=== PATIENT | male | born 1940 | race Caucasian/White ===

== ENCOUNTER 2024-09-20 08:22 | Inpatient (IN) ==
[2024-09-20 08:52] LABS: Basophils # (Auto) 0 K/mcL (0.00-0.30); Basophils % (Auto) 0 % (0.0-2.0); Eosinophils # (Auto) 0 K/mcL (0.00-0.70); Eosinophils % (Auto) 0 % (0.0-7.0); Hematocrit 26.8 % (40.1-51.0); Hemoglobin 9.1 g/dL (13.7-17.5); Lymphocytes # (Auto) 0.37 K/mcL (1.50-4.80); Lymphocytes % (Auto) 1.8 % (15.5-49.0); Mean Cell Volume 90.8 fL (80.0-100.0); Mean Platelet Volume 9.4 fL (8.8-12.5); Monocytes # (Auto) 0.93 K/mcL (0.10-0.90); Monocytes % (Auto) 4.4 % (1.0-12.0); Neutrophils % (Auto) 92.2 % (38.0-78.0); Platelet Count 179 K/mcL (140-440); RBC 2.95 M/mcL (4.63-6.08); Red Cell Distribution Width 13.3 % (11.5-14.5)
[2024-09-20 09:25] LABS: ALT/SGPT 45 U/L (<40); AST/SGOT 54 U/L (<40); Albumin 3.1 gm/dL (3.2-5.2); Albumin/Globulin Ratio 1.1 (1.0-2.3); Alkaline Phosphatase 84 U/L (39-117); Bilirubin,Total 0.5 mg/dL (0.1-1.0); Blood Urea Nitrogen 55 mg/dL (8-23); Calcium 8.7 mg/dL (8.6-10.4); Carbon Dioxide 22 mmol/L (22-30); Chloride 88 mmol/L (96-108); Globulin 2.9 gm/dL (2.2-3.7); Glomerular Filtration Rate 21; Glucose 107 mg/dL (70-105); Potassium 3.5 mmol/L (3.3-5.1); Sodium 125 mmol/L (133-145); Thyroid Stimulating Hormone 3.38 uIU/mL (0.27-5.01)
[2024-09-20 09:27] LABS: INR 1.1 (0.9-1.1); Prothrombin Time 15.1 sec (11.9-14.5)
[2024-09-20] MEDS: 0.9 % SODIUM CHLORIDE 1,000 ML IV ONE (09:31)
[2024-09-20 09:59] LABS: Appearance,Urine Clear (Clear); Bacteria,Urine Mod /hpf (0); Bilirubin,Urine Negative (Negative); Color,Urine Yellow; Glucose,Urine (UA) Negative (Negative); Ketones,Urine Negative (Negative); Leukocyte Esterase,Urine Large /uL (Negative); Nitrate,Urine Negative (Negative); PH,Urine 5.5 (5.0-9.0); Protein,Urine 100 mg/dL (Negative); Specific Gravity,Urine 1.015 (1.000-1.035); Urine Blood Moderate ery/mcL (Negative); Urine RBC 2 /hpf (0-3); Urine Squamous Epithelial Cell 0 /hpf (0-4); Urine WBC 15 /hpf (0-4); Urobilinogen,Urine Normal
[2024-09-20] MEDS: cefTRIAXone 2 GM in DEXTROSE 5% IN WATER 50 ML IV ONE (10:46)
[2024-09-20] MEDS: 0.9 % SODIUM CHLORIDE 1,000 ML IV SCH ×2 (12:23→16:32)
[2024-09-20] MEDS ORDERED: fentaNYL 100 MCG/2 ML VIAL ONE (13:18)
[2024-09-20] MEDS ORDERED: PROPOFOL 200 MG/20 ML VIAL IV ONE (13:18)
[2024-09-20] MEDS ORDERED: ONDANSETRON 4 MG/2 ML VIAL ONE (13:18)
[2024-09-20] MEDS ORDERED: DEXAMETHASONE 10 MG/ML VIAL ONE (13:18)
[2024-09-20] MEDS ORDERED: KETAMINE 50 MG/ML ML ONE (13:29)
[2024-09-20] MEDS ORDERED: MAGNESIUM SULFATE 2 GM/50 ML BAG IV ONE (13:41)
[2024-09-20] MEDS ORDERED: PHENYLephrine 1 MG/10 ML SYRINGE (ANEST) ONE (14:10)
[2024-09-20] MEDS ORDERED: ePHEDrine 50 MG/5 ML SYRINGE (ANEST) IV ONE (14:10)
[2024-09-20] MEDS ORDERED: IPRATROPIUM/ALBUTEROL 3 ML AMPUL.NEB NEB PRN ×2 (14:33→15:31)
[2024-09-20] MEDS: IOVERSOL 50 ML VIAL IV ONE (14:38)
[2024-09-20] MEDS: LIDOCAINE 2% URO-JET 10 ML JEL.PF.APP UR ONE (14:38)
[2024-09-20] MEDS: ACETAMINOPHEN 1,000 MG/100 ML BAG IV ONE (14:53)
[2024-09-20] MEDS ORDERED: METOCLOPRAMIDE 10 MG/2 ML VIAL IV PRN (15:31)
[2024-09-20] MEDS ORDERED: VANCOMYCIN PER PHARMACY IV SCH (15:31)
[2024-09-20] MEDS ORDERED: POTASSIUM CHLORIDE 40 MEQ in DEXTROSE 5% IN WATER 500 ML IV PRN (15:31)
[2024-09-20] MEDS ORDERED: POTASSIUM CHLORIDE 20 MEQ TABLET PO PRN ×2 (15:31)
[2024-09-20] MEDS ORDERED: SENNOSIDES 1 TABLET PO PRN (15:31)
[2024-09-20] MEDS ORDERED: POLYETHYLENE GLYCOL 3350 17 GM PACKET PO PRN (15:31)
[2024-09-20] MEDS ORDERED: HYDROcodone/APAP 5/325MG TABLET PO PRN (15:31)
[2024-09-20] MEDS ORDERED: MAGNESIUM SULFATE 2 GM/50 ML BAG IV PRN (15:31)
[2024-09-20] MEDS ORDERED: ONDANSETRON 4 MG/2 ML VIAL IV PRN (15:31)
[2024-09-20] MEDS: VANCOMYCIN 1,500 MG in 0.9 % SODIUM CHLORIDE 500 ML IV ONE (16:16)
[2024-09-20] MEDS: 0.9 % SODIUM CHLORIDE 10 ML SYRINGE IV SCH (16:16)
[2024-09-20 16:43] LABS: HDL Cholesterol 18 mg/dL (>40); LDL Cholesterol,Calculated 61 mg/dL (<100); Non-HDL Cholesterol 91 mg/dL (<130); Triglycerides 152 mg/dL (<150)
[2024-09-20] MEDS: DOCUSATE SODIUM 100 MG CAPSULE PO SCH (20:09)
[2024-09-20] MEDS: HEPARIN 5,000 UNIT/ML VIAL SQ SCH (20:09)
[2024-09-21 05:59] LABS: Basophils # (Auto) 0 K/mcL (0.00-0.30); Basophils % (Auto) 0 % (0.0-2.0); Eosinophils # (Auto) 0 K/mcL (0.00-0.70); Eosinophils % (Auto) 0 % (0.0-7.0); Hematocrit 23.1 % (40.1-51.0); Hemoglobin 7.6 g/dL (13.7-17.5); Lymphocytes # (Auto) 0.47 K/mcL (1.50-4.80); Lymphocytes % (Auto) 4.1 % (15.5-49.0); Mean Cell Volume 93.5 fL (80.0-100.0); Mean Corpuscular HGB Conc 32.9 g/dL (31.0-36.0); Mean Platelet Volume 9.2 fL (8.8-12.5); Monocytes # (Auto) 0.25 K/mcL (0.10-0.90); Monocytes % (Auto) 2.2 % (1.0-12.0); Platelet Count 148 K/mcL (140-440); RBC 2.47 M/mcL (4.63-6.08); Red Cell Distribution Width 13.4 % (11.5-14.5); WBC 11.4 K/mcL (4.5-11.0)
[2024-09-21 06:38] LABS: ALT/SGPT 29 U/L (<40); AST/SGOT 26 U/L (<40); Albumin 2.5 gm/dL (3.2-5.2); Alkaline Phosphatase 64 U/L (39-117); Bilirubin,Direct < 0.2 mg/dL (0-0.3); Bilirubin,Total 0.3 mg/dL (0.1-1.0); Blood Urea Nitrogen 48 mg/dL (8-23); Calcium 7.9 mg/dL (8.6-10.4); Carbon Dioxide 19 mmol/L (22-30); Chloride 95 mmol/L (96-108); Globulin 2.6 gm/dL (2.2-3.7); Glomerular Filtration Rate 28; Glucose 125 mg/dL (70-105); Lactate Dehydrogenase 163 U/L (135-225); Phosphorous 4.7 mg/dL (2.5-4.5); Potassium 3.8 mmol/L (3.3-5.1); Sodium 127 mmol/L (133-145); Triglycerides 110 mg/dL (<150)
[2024-09-21 07:27] LABS: Vancomycin,Random 11.2 ug/mL
[2024-09-21] MEDS ORDERED: ENOXAPARIN 40 MG/0.4 ML SYRINGE SQ SCH (09:00)
[2024-09-21] MEDS: SODIUM BICARBONATE 650 MG TABLET PO SCH (09:44)
[2024-09-21] MEDS: cefTRIAXone 1 GM VIAL IV SCH (09:45)
[2024-09-21] MEDS: VANCOMYCIN 1,500 MG in 0.9 % SODIUM CHLORIDE 500 ML IV ONE (13:49)
[2024-09-22 06:22] LABS: Basophils # (Auto) 0 K/mcL (0.00-0.30); Basophils % (Auto) 0 % (0.0-2.0); Eosinophils # (Auto) 0.03 K/mcL (0.00-0.70); Eosinophils % (Auto) 0.4 % (0.0-7.0); Hematocrit 22.8 % (40.1-51.0); Hemoglobin 7.3 g/dL (13.7-17.5); Lymphocytes # (Auto) 0.88 K/mcL (1.50-4.80); Lymphocytes % (Auto) 11.2 % (15.5-49.0); Mean Platelet Volume 9.8 fL (8.8-12.5); Monocytes # (Auto) 0.44 K/mcL (0.10-0.90); Monocytes % (Auto) 5.6 % (1.0-12.0); Platelet Count 147 K/mcL (140-440); RBC 2.35 M/mcL (4.63-6.08); Red Cell Distribution Width 13.9 % (11.5-14.5); WBC 7.9 K/mcL (4.5-11.0)
[2024-09-22 06:29] LABS: ALT/SGPT 27 U/L (<40); AST/SGOT 21 U/L (<40); Albumin 2.5 gm/dL (3.2-5.2); Alkaline Phosphatase 57 U/L (39-117); Bilirubin,Direct < 0.2 mg/dL (0-0.3); Bilirubin,Total 0.2 mg/dL (0.1-1.0); Blood Urea Nitrogen 47 mg/dL (8-23); Calcium 8.2 mg/dL (8.6-10.4); Carbon Dioxide 24 mmol/L (22-30); Chloride 100 mmol/L (96-108); Globulin 2.4 gm/dL (2.2-3.7); Glomerular Filtration Rate 30; Glucose 95 mg/dL (70-105); Lactate Dehydrogenase 152 U/L (135-225); Phosphorous 3.4 mg/dL (2.5-4.5); Sodium 133 mmol/L (133-145); Triglycerides 122 mg/dL (<150); Uric Acid 7.3 mg/dL (2.5-8.0)
[2024-09-22] MEDS: VANCOMYCIN 1,000 MG in 0.9 % SODIUM CHLORIDE 250 ML IV SCH (08:28)
[2024-09-22] MEDS ORDERED: VANCOMYCIN PER PHARMACY IV SCH (12:02)
[2024-09-23 06:40] LABS: Blood Urea Nitrogen 40 mg/dL (8-23); Calcium 8.1 mg/dL (8.6-10.4); Carbon Dioxide 24 mmol/L (22-30); Chloride 100 mmol/L (96-108); Glomerular Filtration Rate 36; Glucose 90 mg/dL (70-105); Potassium 4.1 mmol/L (3.3-5.1); Sodium 133 mmol/L (133-145)
[2024-09-23 06:44] LABS: Basophils # (Auto) 0 K/mcL (0.00-0.30); Basophils % (Auto) 0 % (0.0-2.0); Eosinophils # (Auto) 0.09 K/mcL (0.00-0.70); Eosinophils % (Auto) 1.6 % (0.0-7.0); Hematocrit 24.4 % (40.1-51.0); Lymphocytes # (Auto) 0.97 K/mcL (1.50-4.80); Lymphocytes % (Auto) 17.1 % (15.5-49.0); Mean Cell Volume 93.5 fL (80.0-100.0); Mean Corpuscular HGB Conc 32.8 g/dL (31.0-36.0); Monocytes # (Auto) 0.41 K/mcL (0.10-0.90); Monocytes % (Auto) 7.2 % (1.0-12.0); Neutrophils % (Auto) 72.7 % (38.0-78.0); Platelet Count 216 K/mcL (140-440); RBC 2.61 M/mcL (4.63-6.08); Red Cell Distribution Width 13.7 % (11.5-14.5); WBC 5.7 K/mcL (4.5-11.0)
[2024-09-23 06:59] LABS: Vancomycin,Random 16.6 ug/mL
[2024-09-23] MEDS: VANCOMYCIN 1,000 MG in 0.9 % SODIUM CHLORIDE 250 ML IV SCH (09:40)
[2024-09-23] MEDS: ACETAMINOPHEN 325 MG TABLET PO PRN (11:48)
[2024-09-24 06:20] LABS: Basophils # (Auto) 0 K/mcL (0.00-0.30); Basophils % (Auto) 0 % (0.0-2.0); Eosinophils # (Auto) 0.08 K/mcL (0.00-0.70); Eosinophils % (Auto) 1.5 % (0.0-7.0); Hematocrit 25.3 % (40.1-51.0); Hemoglobin 8.2 g/dL (13.7-17.5); Lymphocytes % (Auto) 20.7 % (15.5-49.0); Mean Cell Volume 93.4 fL (80.0-100.0); Mean Corpuscular HGB Conc 32.4 g/dL (31.0-36.0); Mean Platelet Volume 8.8 fL (8.8-12.5); Monocytes % (Auto) 5.6 % (1.0-12.0); Neutrophils % (Auto) 69.9 % (38.0-78.0); Platelet Count 204 K/mcL (140-440); RBC 2.71 M/mcL (4.63-6.08); Red Cell Distribution Width 13.7 % (11.5-14.5); WBC 5.3 K/mcL (4.5-11.0)
[2024-09-24 06:41] LABS: Blood Urea Nitrogen 36 mg/dL (8-23); Calcium 8.1 mg/dL (8.6-10.4); Carbon Dioxide 24 mmol/L (22-30); Chloride 103 mmol/L (96-108); Glomerular Filtration Rate 42; Glucose 101 mg/dL (70-105); Potassium 4.1 mmol/L (3.3-5.1); Sodium 135 mmol/L (133-145)
[2024-09-24] MEDS: VANCOMYCIN 1,000 MG in 0.9 % SODIUM CHLORIDE 250 ML IV ONE (10:22)
== END 2024-09-24 16:32 | disposition home or self-care (01) | DRG 872 ==
LOC: ED 08:22 → SSSU 13:12 → MEDSUR 15:21
PROVIDERS: ADMIT Internal Medicine; ATTEND Internal Medicine